=== PATIENT | male | born 1975 | race Caucasian/White ===

== ENCOUNTER 2018-02-06 12:35 | Emergency (ER) | payer SELFPAY ==
[~2018-02-06] VITALS: Ht 172.7 cm; Wt 70.0 kg
[2018-02-06 12:53] VITALS: BP 110/60
== END 2018-02-06 13:29 | disposition home or self-care (01) ==
LOC: ER 12:35
DX: F10.129 Alcohol abuse with intoxication, unspecified (principal); Y90.9 Presence of alcohol in blood, level not specified; E11.9 Type 2 diabetes mellitus without complications; I10 Essential (primary) hypertension
CPT/HCPCS: 99283